=== PATIENT | male | born 1960 | race Two or more races ===

== ENCOUNTER 2020-04-13 10:31 | Emergency (ER) | payer OTHER ==
[~2020-04-13] VITALS: Ht 177.8 cm; Wt 104.3 kg
[2020-04-13 10:31] VITALS: BP 142/96
[2020-04-13] MEDS ORDERED: EPINEPHrine HCL 1 MG/10 ML SYRG IV ONE ×2 (10:32)
[2020-04-13] MEDS ORDERED: ATROPINE SULF 1 MG/10ml SYR IM ONE ×2 (10:32)
[2020-04-13] MEDS ORDERED: CALCIUM CHLOR(10%) 100MG/ML 10ML SYRINGE IV ONE (10:32)
[2020-04-13] MEDS ORDERED: SODIUM BICARBONATE 8.4% INJ 50ML SYRINGE IV ONE (10:32)
[2020-04-13] MEDS ORDERED: DOPamine 1600mCg/ml 400MG/250ml NSorD5 KIT/BAG IV ONE (10:32)
[2020-04-13] MEDS ORDERED: AMIODARONE HCL (50 MG/ ML) 3 ML VIAL IV ONE (10:32)
[2020-04-13] MEDS ORDERED: ANGIOMAX 250 MG VIAL IV ONE (10:45)
[2020-04-13] MEDS ORDERED: SODIUM CHL 0.9% 50 ML ONE (10:45)
[2020-04-13] MEDS ORDERED: EPINEPHrine HCL 1 MG/10 ML SYRG ONE (10:46)
[2020-04-13] MEDS ORDERED: ATROPINE SULF 1 MG/10ml SYR ONE (10:46)
[2020-04-13] MEDS ORDERED: IODIXANOL 320MG/ML 100ML BTL IV ONE (10:48)
[2020-04-13] MEDS ORDERED: LIDOCAINE 2%HCL (LOCAL ANESTH.) INJ 20ML MDV ONE (10:48)
[2020-04-13] MEDS ORDERED: HEPARIN IN NS 1000Units/500mL 0 ML ONE (10:50)
[2020-04-13] MEDS ORDERED: LIDOCAINE 2% (LOCAL ANESTH.) PF 5ml SDV ONE (11:00)
[2020-04-13] MEDS ORDERED: MIDAZOLAM DRIP 50 mg/50mL 50 ML IV SCH (11:00)
[2020-04-13 13:29] LABS: Hematocrit 43.2 % (41.0-53.0); Hemoglobin 14.3 g/dL (13.5-17.5); Mean Corpuscular Hemoglobin 32.6 pg (28.0-32.0); Mean Corpuscular Hgb Conc. 33.2 g/dL (32.0-36.0); Mean Corpuscular Volume 98.2 fL (80.0-100.0); Platelet Count (auto) 121 10^3/uL (140-450); Red Cell Distribution Width 14.3 % (11.8-14.3); White Blood Cell 9.9 10^3/uL (4.4-10.8)
[2020-04-13 13:32] LABS: Basophils % (manual) 0 (0.0-2.0); Myelocytes % 0
[2020-04-13 13:33] LABS: Blast Cells 0; Promyelocytes % 0; Reactive Lymphocytes 0
[2020-04-13 13:49] LABS: Albumin 2.8 g/dL (3.4-5.0); Calcium 10.4 mg/dL (8.5-10.1); Potassium 3.2 mmol/L (3.5-5.1)
[2020-04-13 13:50] LABS: Band Neutrophils % (manual) 1; Eosinophils % (manual) 1 (0-7); Lymphocytes % (manual) 63 (10.0-50.0); Metamyelocytes % 1; Monocytes % (manual) 10 (0-12)
[2020-04-13 13:57] LABS: BUN/Creatinine Ratio 15.4; Bilirubin, Total 0.3 mg/dL (0.2-1.0); Total Protein 5.8 g/dL (6.4-8.2)
== END 2020-04-13 12:23 ==
LOC: ER 10:31 → EDBD 10:36 → ER 12:23
DX: I46.9 Cardiac arrest, cause unspecified (principal); I21.3 ST elevation (STEMI) myocardial infarction of unspecified site; I10 Essential (primary) hypertension; F17.210 Nicotine dependence, cigarettes, uncomplicated
CPT/HCPCS: 31500; 36415; 80053; 84484; 85007; 85027; 92950; 99291; J0171; J0282; J0583; J1265; J2001; Q9967